=== PATIENT | female | born 1955 | race Hispanic/Latino ===

== ENCOUNTER → 2017-08-26 | Day surgery (SDC) | payer OTHER ==
[2017-08-25 12:25] VITALS: BMI 55.1
--- NOTE | 2017-08-26 14:47 | OP ---
DATE OF PROCEDURE: 08/26/2017 SURGEON: Jimi Petersen M.D. MASTICATOR SURGEON: None. PROCEDURE: Esophagogastroduodenoscopy, diagnostic. INDICATION: Follow up gastric ulcer. Prior Esophagogastroduodenoscopy on 06/23/2017 demonstrated wh at appeared to be an ulcerative submucosal nodule in the posterior wall of the gastric body. Perform ing followup EGD to assess for ulcer healing after 2 months of high dose acid suppression. Prior bio psies of the ulcer demonstrated only reactive gastropathy, but this did appear to be submucosal lesio n. MEDICATIONS: See anesthesia record. FINDINGS: After discussion of the risks, benefits and alternatives of the procedure, informed consen t was obtained and witnessed. Pre-endoscopic cardiopulmonary examination was satisfactory. Timeout was performed before sedation was achieved. Sedation was achieved with anesthesia assistance in the endoscopy unit. A Pentax adult upper endoscope was placed into the oropharynx and passed through the cricopharyngeus under direct visualization. The esophageal mucosa appeared normal throughout with a normal-appearing Z-line. The endoscope was then advanced into the stomach. Forward and retroflexed views of the entire gastric mucosa were obtained. The gastric mucosa has a diffusely atrophic appea matilde at 55 cm from the incisors, along the posterior wall of the gastric body near the incisura, the re is again visualize what appears to be an ulcerated submucosal nodule. This is about [address] at the base. There is some friability to the ulcerated area, but no significant oozing or bleedi ng. Overall, this appears unchanged since her prior exam 2 months ago, despite maximal acid suppress ion. The endoscope was advanced through the pylorus and into the first and second portions of the du odenum, which appeared normal. The upper endoscope was then completely withdrawn and the patient all owed to recover. The patient tolerated the procedure well. There were no immediate post-procedure c omplications. IMPRESSION: 1. Ulcerated submucosal nodule, posterior wall of the gastric body, about 2 cm in diameter, unchange d in appearance from 2 months prior. 2. Diffusely atrophic gastric mucosa. 3. Otherwise, normal esophagogastroduodenoscopy. RECOMMENDATIONS: 1. Continue twice daily proton pump inhibitor. 2. We will send a referral for endoscopic ultrasound examination.
== END ==
LOC: SDC 09:43
PROVIDERS: ATTEND Internal Medicine
PROC: 0DJ08ZZ Inspection of Upper Intestinal Tract, Via Natural or Artificial Opening Endoscopic (ICD-10-PCS; principal; 2017-08-26)
DX: K31.89 Other diseases of stomach and duodenum (principal); I10 Essential (primary) hypertension; I50.9 Heart failure, unspecified; F32.9 Major depressive disorder, single episode, unspecified; F41.9 Anxiety disorder, unspecified; G47.33 Obstructive sleep apnea (adult) (pediatric); Z79.82 Long term (current) use of aspirin; Z79.899 Other long term (current) drug therapy; Z99.89 Dependence on other enabling machines and devices; Z98.890 Other specified postprocedural states; Z87.891 Personal history of nicotine dependence

== ENCOUNTER 2018-02-01 14:28 | Outpatient (CLI) | payer OTHER ==
--- NOTE | 2018-02-02 11:46 | MMO ---
BILATERAL DIGITAL SCREENING MAMMOGRAMS: Date: 02/01/18 This patient's mammogram was interpreted with the assistance of computer-aided detection. Comparison made with exam of 04/17/15. FINDINGS: There are scattered fibroglandular densities and benign calcifications. No suspicious masses or calci fications are identified. IMPRESSION: BIRADS 2: Benign Finding(s) Return to annual mammographic screening. POS: LETITIA
== END 2018-02-01 14:29 | disposition home or self-care (01) ==
LOC: SCSMAMMO 14:28
PROVIDERS: ATTEND Family Medicine
DX: Z12.31 Encounter for screening mammogram for malignant neoplasm of breast (principal)
CPT/HCPCS: 77067

== ENCOUNTER 2018-05-27 14:33 | Emergency (ER) | payer OTHER ==
[2018-05-27] MEDS ORDERED: HYDROcodone/Acetaminophen 5/325 mg Tablet ONE (14:47)
[2018-05-27] MEDS ORDERED: Ketorolac Tromethamine 60 MG/2 ML VIAL ONE (14:47)
== END 2018-05-27 15:10 | disposition home or self-care (01) ==
LOC: ERS 14:33
DX: G89.29 Other chronic pain (principal); M25.551 Pain in right hip; M25.552 Pain in left hip; M54.5 Low back pain; I11.0 Hypertensive heart disease with heart failure; I50.9 Heart failure, unspecified; E78.5 Hyperlipidemia, unspecified; F31.9 Bipolar disorder, unspecified; F41.9 Anxiety disorder, unspecified; Z79.82 Long term (current) use of aspirin; Z79.899 Other long term (current) drug therapy
CPT/HCPCS: 36415; 80053; 80061; 96372; J1885

== ENCOUNTER 2020-04-08 13:56 | Emergency (ER) | payer OTHER ==
[2020-04-09 17:56] LABS: SARS-CoV-2 MS2 Positive; SARS-CoV-2 N Gene Negative; SARS-CoV-2 S Gene Negative; SARS-CoV-2 orf1ab Negative
== END 2020-04-08 14:22 | disposition home or self-care (01) ==
LOC: ERS 13:56
DX: J34.89 Other specified disorders of nose and nasal sinuses (principal); R05 Cough; I11.0 Hypertensive heart disease with heart failure; I50.9 Heart failure, unspecified; E78.5 Hyperlipidemia, unspecified; F41.9 Anxiety disorder, unspecified; F32.9 Major depressive disorder, single episode, unspecified; Z20.828 Contact with and (suspected) exposure to other viral communicable diseases; Z79.82 Long term (current) use of aspirin; Z79.899 Other long term (current) drug therapy
CPT/HCPCS: 87635; 99283; U0003

== ENCOUNTER 2020-08-17 13:32 | Emergency (ER) | payer OTHER ==
--- NOTE | 2020-08-17 14:46 | RAD ---
PORTABLE CHEST 1 VIEW: DATE: 08/17/2020. TIME: 1:36 PM. HISTORY: Shortness of breath, nausea, vomiting, and loss of smell and taste. Cough. COMPARISON: 05/31/2014. FINDINGS/IMPRESSION: The heart is enlarged. There are patchy opacities in the lung muller bilaterally, right greater than left. A calcified granuloma is again noted in the right upper lobe. There is continued elevation o f the right hemidiaphragm. No pneumothoraces or large effusions are seen. The possibility of pneumo lary should be considered. POS: AH
[2020-08-17] MEDS ORDERED: Iopamidol-370 76% 500 ML 1 ML ONE (15:22)
[2020-08-17 15:32] LABS: #Lymphocytes 0.9 thou/uL (1.20-3.40); #Monocytes 0.2 thou/uL (0.11-0.59); #Neutrophils 4.1 thou/uL (1.40-6.50); %Basophils 0.2 % (0.0-1.0); %Eosinophils 0.1 % (0.0-10.0); %Lymphocytes 16.9 % (21.0-51.0); %Monocytes 4.1 % (0.0-10.0); %Neutrophils 78.6 % (42.0-75.0); Hemoglobin 11.4 g/dL (12.0-16.0); Mean Corpuscular HGB CONC 30.2 g/dL (32.0-36.0); Mean Corpuscular Hemoglobin 26.9 pg (27.0-31.0); Mean Corpuscular Volume 89.3 fL (78.0-98.0); Mean Platelet Volume 7.7 fL (7.4-10.4); Platelet Count 159 thou/uL (130-400); RBC Distribution Width 13.7 % (11.5-14.5); Red Blood Cell (RBC) Count 4.21 mill/uL (4.20-5.40); White Blood Cell (WBC) Count 5.2 thou/uL (4.8-10.8)
[2020-08-17 17:34] LABS: ALT (SGPT) 17 U/L (8-55); AST (SGOT) 40 U/L (5-34); Albumin 3.2 g/dL (3.4-4.8); Alkaline Phosphatase 102 U/L (40-110); Anion Gap 12 mmol/L (10-20); BUN (Urea Nitrogen) 11 mg/dL (9.8-20.1); Bilirubin, Total 0.5 mg/dL (0.2-1.2); Calc. Creatinine Clearance 0 mL/min (70-130); Calcium 8.3 mg/dL (7.8-10.44); Carbon Dioxide 32 mmol/L (23-31); Chloride 99 mmol/L (98-107); Estimated GFR-MDRD Greater than 90; Globulin 3.6 g/dL (2.4-3.5); Glucose 111 mg/dL (80-115); Potassium 4.3 mmol/L (3.5-5.1); Protein, Total 6.8 g/dL (6.0-8.3); Sodium 139 mmol/L (136-145)
[2020-08-17] MEDS ORDERED: Acetaminophen 500 MG TAB ONE (19:41)
--- NOTE | 2020-08-17 20:16 | CT ---
CT ANGIOGRAM OF THE CHEST: 08/17/20 HISTORY: Worsening malaise. Severe heart failure. Home oxygen. COMPARISON: 06/13/11, 05/02/10. TECHNIQUE: CT angiogram of the chest is performed in the axial plane. Three dimensional reformatted images are s ubmitted for interpretation. FINDINGS: MEDIASTINUM: No evidence of lymphadenopathy. Stable right paratracheal lymph nodes. HEART: Upper normal heart size. No significant pericardial fluid. There is extensive coronary artery disease . SUBDIAPHRAGMATIC STRUCTURES: No acute abnormality. Surgically absent gallbladder. TRACHEA AND CENTRAL BRONCHI: Patent. PLEURAL SPACES: No significant pleural effusion. PNEUMOTHORAX: None LUNGS: There are scattered ground glass opacities throughout the lung parenchyma. Many of these ground glass opacities have a peripheral distribution. There is more focal consolidation with air bronchograms in the right upper lobe. Given the distribution, COVID-19 pneumonia must be considered. Superimposed ba cterial pneumonia or pulmonary edema in the right upper lobe cannot be excluded. The visualized aorta has a normal caliber. No evidence of aneurysm. Heterogeneous thyroid gland is identified. There is persistent dilatation of the central pulmonary artery, compatible with pulmonary arterial hy pertension. Adequate contrast opacification of the pulmonary arterial system to the level of the loba r arteries. No filing defect to suggest thromboembolism. Limited evaluation of the segmental and subs egmental artery due to timing of contrast bolus. IMPRESSION: 1. No evidence of pulmonary artery embolism to the level of the lobar arteries. 2. Prominent pulmonary artery, worrisome for pulmonary arterial hypertension. 3. Focal consolidation of the right upper lobe may represent edema or bacterial pneumonia. 4. There are peripheral ground glass opacities, suspicious for COVID-19 pneumonia. POS: PPP
[2020-08-17 22:18] LABS: SARS-CoV-2 MS2 Positive; SARS-CoV-2 N Gene Positive; SARS-CoV-2 S Gene Positive; SARS-CoV-2 by NAA DETECTED (NotDetected); SARS-CoV-2 orf1ab Positive
--- NOTE | 2020-08-25 15:55 | EKG ---
Test Reason : Blood Pressure : / mmHG Vent. Rate : 070 BPM Atrial Rate : 070 BPM P-R Int : 158 ms QRS Dur : 066 ms QT Int : 414 ms P-R-T Axes : -18 016 047 degrees QTc Int : 447 ms Normal sinus rhythm Low voltage QRS Borderline ECG Confirmed by CHUY CRUZ ([id number]), supervising editor trailer TERRI AZAR ([id number]) on 08/25/2020 3:55:03 PM Referred By: Confirmed By:CHUY CRUZ
== END 2020-08-17 19:38 | disposition home or self-care (01) ==
LOC: ERS 13:32
DX: U07.1 COVID-19 (principal); J12.89 Other viral pneumonia; I11.0 Hypertensive heart disease with heart failure; I50.9 Heart failure, unspecified; E78.5 Hyperlipidemia, unspecified; F41.9 Anxiety disorder, unspecified; F32.9 Major depressive disorder, single episode, unspecified; Z79.899 Other long term (current) drug therapy; Z79.82 Long term (current) use of aspirin
CPT/HCPCS: 36415; 51701; 71045; 71275; 80053; 83735; 83880; 84484; 85025; 85379; 87040; 87086; 87635; 87804; 93005; Q9967; U0003

== ENCOUNTER 2022-01-01 18:31 | Inpatient (IN) | payer OTHER, MEDICARE ==
[2022-01-01 19:08] LABS: #Eosinphils 0.1 thou/uL (0.0-0.7); #Lymphocytes 1.8 thou/uL (1.20-3.40); #Monocytes 0.4 thou/uL (0.11-0.59); #Neutrophils 5.8 thou/uL (1.40-6.50); %Basophils 0.2 % (0.0-1.0); %Eosinophils 0.7 % (0.0-10.0); %Lymphocytes 22.1 % (21.0-51.0); %Monocytes 5.1 % (0.0-10.0); Hemoglobin 10.9 g/dL (12.0-16.0); Mean Corpuscular Hemoglobin 27.9 pg (27.0-31.0); Mean Corpuscular Volume 92.9 fL (78.0-98.0); Mean Platelet Volume 7.6 fL (7.4-10.4); Platelet Count 226 thou/uL (130-400); RBC Distribution Width 14.6 % (11.5-14.5); White Blood Cell (WBC) Count 8.1 thou/uL (4.8-10.8)
[2022-01-01] MEDS ORDERED: Furosemide 40 MG/4 ML VIAL ONE (19:19)
[2022-01-01 19:20] LABS: Hypochromia SLIGHT = 6-15 cells (100X) (0-5/hpf); MDiff Complete? YES; Platelet Morphology Comment Appears Adequate; Polychromasia SLIGHT = 2-3 cells (100X) (0-2/hpf)
[2022-01-01 19:24] LABS: Actual Bicarbonate (HCO3v) 30 mEq/L (22-28); Analyzer IN Cardio ER; Base Excess 2.5 mEq/L (-2.0 to +3.0); Calcium, Ionized (venous) 1.11 mmol/L (1.16-1.32); Chloride (VBG) 104 mmol/L (98-106); Hemoglobin (Hb) 11.5 g/dL (11.7-16.1); Potassium (VBG) 4.34 mmol/L (3.70-5.30); Sodium 139.7 mmol/L (133-146); pH (venous) 7.32 (7.32-7.43)
[2022-01-01 19:30] LABS: ALT (SGPT) 11 U/L (8-55); AST (SGOT) 18 U/L (5-34); Albumin 3.5 g/dL (3.4-4.8); Alkaline Phosphatase 139 U/L (40-110); Anion Gap 11 mmol/L (10-20); BUN (Urea Nitrogen) 31 mg/dL (9.8-20.1); Bilirubin, Total 0.4 mg/dL (0.2-1.2); Calc. Creatinine Clearance 0 mL/min (70-130); Calcium 8.8 mg/dL (7.8-10.44); Carbon Dioxide 33 mmol/L (23-31); Chloride 104 mmol/L (98-107); Globulin 3.2 g/dL (2.4-3.5); Glucose 137 mg/dL (80-115); Potassium 4.3 mmol/L (3.5-5.1); Protein, Total 6.7 g/dL (5.8-8.1); Sodium 144 mmol/L (136-145)
[2022-01-01] MEDS ORDERED: Acetaminophen 325 MG TAB PO SCH (21:00)
[2022-01-01] MEDS ORDERED: Ondansetron ODT 4 MG TAB PO PRN (22:43)
[2022-01-02] MEDS: Acetaminophen 325 MG TAB PO PRN ×2 (03:35→08:25)
[2022-01-02 03:45] VITALS: BMI 52.7
[2022-01-02 05:01] LABS: Hemoglobin 9.9 g/dL (12.0-16.0); Mean Corpuscular HGB CONC 29.3 g/dL (32.0-36.0); Mean Corpuscular Hemoglobin 26.9 pg (27.0-31.0); Mean Platelet Volume 7.6 fL (7.4-10.4); Platelet Count 214 thou/uL (130-400); RBC Distribution Width 14.5 % (11.5-14.5); Red Blood Cell (RBC) Count 3.66 mill/uL (4.20-5.40); White Blood Cell (WBC) Count 7.3 thou/uL (4.8-10.8)
[2022-01-02 05:03] LABS: Anion Gap 11 mmol/L (10-20); BUN (Urea Nitrogen) 24 mg/dL (9.8-20.1); Calc. Creatinine Clearance 167 mL/min (70-130); Calcium 9.1 mg/dL (7.8-10.44); Carbon Dioxide 37 mmol/L (23-31); Chloride 101 mmol/L (98-107); Glucose 103 mg/dL (80-115); Potassium 3.8 mmol/L (3.5-5.1); Sodium 145 mmol/L (136-145)
[2022-01-02 05:16] LABS: #Basophils 0.1 thou/uL (0.0-0.2); #Lymphocytes 1.7 thou/uL (1.20-3.40); #Monocytes 0.5 thou/uL (0.11-0.59); #Neutrophils 4.9 thou/uL (1.40-6.50); %Basophils 1.4 % (0.0-1.0); %Eosinophils 0.6 % (0.0-10.0); %Monocytes 6.2 % (0.0-10.0); %Neutrophils 67.8 % (42.0-75.0); Hypochromia SLIGHT = 6-15 cells (100X) (0-5/hpf); MDiff Complete? YES; Stomatocytes SLIGHT = 2-5 cells (100X) (0-1/hpf)
[2022-01-02] MEDS: Famotidine 20 MG TAB PO SCH ×2 (08:25→20:46)
[2022-01-02] MEDS: Furosemide 40 MG TAB PO SCH (08:25)
[2022-01-02] MEDS: Enoxaparin Sodium 40 MG/0.4 ML SYRINGE SC SCH (08:26)
[2022-01-02] MEDS: Metoprolol Tartrate 25 MG TAB PO SCH ×2 (08:26→20:45)
[2022-01-02] MEDS: Aspirin 81 mg Enteric Coated Tablet PO SCH (08:26)
[2022-01-02] MEDS ORDERED: Furosemide 40 MG/4 ML VIAL SLOW IVP SCH (09:00)
[2022-01-02] MEDS ORDERED: AcetaZOLAMIDE 250 MG TAB PO SCH (09:00)
[2022-01-02 11:58] LABS: SARS-CoV-2 PCR by NAA Not Detected (NotDetected)
[2022-01-02] MEDS ORDERED: Furosemide 20 MG/2 ML VIAL SLOW IVP SCH (16:45)
[2022-01-02] MEDS ORDERED: Atorvastatin Calcium 40 MG TAB PO SCH (21:00)
[2022-01-03 04:31] LABS: #Basophils 0.1 thou/uL (0.0-0.2); #Eosinphils 0.1 thou/uL (0.0-0.7); #Lymphocytes 2.2 thou/uL (1.20-3.40); #Monocytes 0.4 thou/uL (0.11-0.59); #Neutrophils 3.4 thou/uL (1.40-6.50); %Basophils 1.2 % (0.0-1.0); %Eosinophils 0.9 % (0.0-10.0); %Lymphocytes 35.8 % (21.0-51.0); %Monocytes 6.4 % (0.0-10.0); %Neutrophils 55.6 % (42.0-75.0); Hemoglobin 9.7 g/dL (12.0-16.0); Mean Corpuscular HGB CONC 29.1 g/dL (32.0-36.0); Mean Corpuscular Hemoglobin 26.8 pg (27.0-31.0); Mean Corpuscular Volume 92.2 fL (78.0-98.0); Mean Platelet Volume 7.5 fL (7.4-10.4); Platelet Count 213 thou/uL (130-400); RBC Distribution Width 14.6 % (11.5-14.5); Red Blood Cell (RBC) Count 3.63 mill/uL (4.20-5.40); White Blood Cell (WBC) Count 6.1 thou/uL (4.8-10.8)
[2022-01-03 04:50] LABS: BUN (Urea Nitrogen) 24 mg/dL (9.8-20.1); Calc. Creatinine Clearance 167 mL/min (70-130); Calcium 9.1 mg/dL (7.8-10.44); Glucose 94 mg/dL (80-115)
[2022-01-03 05:00] LABS: Anion Gap 13 mmol/L (10-20); Carbon Dioxide 37 mmol/L (23-31); Chloride 97 mmol/L (98-107); Potassium 3.7 mmol/L (3.5-5.1); Sodium 143 mmol/L (136-145)
[2022-01-03] MEDS: Furosemide 40 MG TAB PO SCH (06:31)
[2022-01-03] MEDS: Metoprolol Tartrate 25 MG TAB PO SCH (08:34)
[2022-01-03] MEDS: Famotidine 20 MG TAB PO SCH (08:34)
[2022-01-03] MEDS: Enoxaparin Sodium 40 MG/0.4 ML SYRINGE SC SCH (08:34)
[2022-01-03] MEDS: Aspirin 81 mg Enteric Coated Tablet PO SCH (08:35)
[2022-01-03] MEDS ORDERED: AcetaZOLAMIDE 250 MG TAB PO SCH (09:00)
[2022-01-03 11:40] VITALS: BP 121/58; TEMP 98.5
== END 2022-01-03 15:00 | disposition home or self-care (01) | DRG 291 ==
LOC: ERS 18:31 → ERHOLD 20:14 → 2SW 21:59 → OBSVTOIN 01-02 09:48
PROVIDERS: ADMIT Family Medicine; ATTEND Family Medicine
PROC: 5A09357 Assistance with Respiratory Ventilation, Less than 24 Consecutive Hours, Continuous Positive Airway Pressure (ICD-10-PCS; principal; 2022-01-03)
DX: I11.0 Hypertensive heart disease with heart failure (principal); I50.33 Acute on chronic diastolic (congestive) heart failure; J96.01 Acute respiratory failure with hypoxia; Z68.43 Body mass index [BMI] 50.0-59.9, adult; G47.33 Obstructive sleep apnea (adult) (pediatric); E78.5 Hyperlipidemia, unspecified; I25.10 Atherosclerotic heart disease of native coronary artery without angina pectoris; K21.9 Gastro-esophageal reflux disease without esophagitis; I27.20 Pulmonary hypertension, unspecified; J44.9 Chronic obstructive pulmonary disease, unspecified; E66.01 Morbid (severe) obesity due to excess calories; W19.XXXA Unspecified fall, initial encounter; D64.9 Anemia, unspecified; L21.9 Seborrheic dermatitis, unspecified; Z20.822 Contact with and (suspected) exposure to COVID-19; Z79.899 Other long term (current) drug therapy; Z95.1 Presence of aortocoronary bypass graft; Z79.82 Long term (current) use of aspirin; I25.2 Old myocardial infarction; Z87.891 Personal history of nicotine dependence; Y92.008 Other place in unspecified non-institutional (private) residence as the place of occurrence of the external cause
CPT/HCPCS: 36415; 71045; 71046; 80048; 80053; 82805; 83880; 84145; 84484; 85025; 93005; 96372; 96374; 96376; 97139; G0378; J1650; J1940; U0003; U0005

== ENCOUNTER 2022-04-08 19:00 | Outpatient (CLI) | payer OTHER | END 2022-04-08 19:01 | disposition home or self-care (01) | LOC: SLEEPLAB 19:00 | PROVIDERS: ATTEND Internal Medicine Critical Care Medicine | DX: G47.33 Obstructive sleep apnea (adult) (pediatric) (principal); R06.83 Snoring; R09.02 Hypoxemia; G47.10 Hypersomnia, unspecified; E66.9 Obesity, unspecified; Z68.43 Body mass index [BMI] 50.0-59.9, adult | CPT/HCPCS: 95811 ==

== ENCOUNTER 2024-07-30 22:40 | Inpatient (IN) | payer OTHER, MEDICAID ==
[2024-07-30] MEDS ORDERED: Acetaminophen 500 MG TAB ONE (23:06)
[2024-07-30] MEDS ORDERED: Sodium Chloride 0.9% 100 ML ONE (23:06)
[2024-07-30] MEDS ORDERED: Cefepime 2 GM VIAL ONE (23:06)
[2024-07-30 23:13] LABS: #Basophils Less than 0.03 10x3/uL (0.0-0.2); #Eosinophils Less than 0.03 10x3/uL (0.0-0.7); %Basophils 0.1 % (0.0-1.0); %Eosinophils 0.1 % (0.0-10.0); %Lymphocytes 8.8 % (21.0-51.0); %Monocytes 7.1 % (0.0-10.0); %Neutrophils 83.4 % (42.0-75.0); Hematocrit 33.2 % (36.0-47.0); Hemoglobin 9.5 g/dL (12.0-16.0); Mean Corpuscular HGB CONC 28.6 g/dL (32.0-36.0); Mean Corpuscular Hemoglobin 23.2 pg (27.0-31.0); Mean Corpuscular Volume 81.2 fL (78.0-98.0); Mean Platelet Volume 9.4 fL (7.4-10.4); Platelet Count 268 10x3/uL (130-400); RBC Distribution Width 16.9 % (11.5-14.5); Red Blood Cell (RBC) Count 4.09 mill/uL (4.20-5.40)
[2024-07-30 23:27] LABS: ALT (SGPT) 21 U/L (8-55); AST (SGOT) 39 U/L (5-34); Albumin 2.5 g/dL (3.4-4.8); Alkaline Phosphatase 133 U/L (40-110); Anion Gap 12 mmol/L (10-20); BUN (Urea Nitrogen) 17 mg/dL (9.8-20.1); Bilirubin, Total 0.4 mg/dL (0.2-1.2); Calc. Creatinine Clearance 0 mL/min (70-130); Carbon Dioxide 24 mmol/L (23-31); Chloride 105 mmol/L (98-107); Estimated GFR 75; Globulin 5.1 g/dL (2.4-3.5); Glucose 155 mg/dL (80-115); Lipase 14 U/L (8-78); Potassium 3.8 mmol/L (3.5-5.1); Protein, Total 7.6 g/dL (5.8-8.1); Sodium 137 mmol/L (136-145)
[2024-07-30 23:30] LABS: Bacteria/HPF None Seen HPF (None Seen); Bilirubin Negative (Negative); Blood, Urine 3+ (Negative); CAUTI Indications for Culture Fever or rigors; Clarity Clear (Clear); Glucose, Urine (Dipstick) 30 mg/dL (Negative); Ketone, Urine Negative (Negative); Leukocyte Negative Leu/uL (Negative); Nitrite Negative (Negative); Protein, Urine (Dipstick) 50 mg/dL (Neg-Trace); RBC/HPF None Seen HPF (0-3); Specific Gravity, Urine 1.026 (1.002-1.036); Squamous Epithelial 0-3 HPF (0-3); WBC/HPF 0-3 HPF (0-3)
[2024-07-30 23:34] LABS: Urine Culture Reflex No No
[2024-07-30 23:36] LABS: Troponin I Less than 0.010 ng/mL (< 0.028)
[2024-07-31] MEDS ORDERED: Vancomycin 1 GM/200 ML (FROZEN) BAG ONE (01:07)
[2024-07-31 02:21] LABS: Lactic Acid 0.85 mmol/L (0.5-2.2)
[2024-07-31 04:42] VITALS: BMI 49.1
[2024-07-31] MEDS ORDERED: Acetaminophen 650 MG Suppository PR PRN (04:48)
[2024-07-31] MEDS ORDERED: Ondansetron PF 4 MG/2 ML Vial IVP PRN (04:48)
[2024-07-31] MEDS ORDERED: Ondansetron ODT 4 MG TAB PO PRN (04:48)
[2024-07-31 05:54] LABS: Legionella Urinary Ag Negative (Negative); Strep pneumo Urine Ag NEGATIVE (NEGATIVE)
[2024-07-31] MEDS: Acetaminophen 325 MG TAB PO SCH (06:23)
[2024-07-31] MEDS: Vancomycin (BATCH) 1.5 GM in Premix 1 BAG IVPB SCH (06:25)
[2024-07-31 06:58] LABS: Influenza A by NAA Not Detected (NotDetected); Influenza B by NAA Not Detected (NotDetected); SARS-CoV-2 NAA Rapid Test Not Detected (NotDetected)
[2024-07-31] MEDS: Famotidine/PF 20 mg/2ml Vial SLOW IVP SCH (08:37)
[2024-07-31] MEDS: Famotidine 20 MG TAB PO SCH (08:40)
[2024-07-31] MEDS: Metoprolol Tartrate 25 MG TAB PO SCH (08:40)
[2024-07-31] MEDS: Aspirin 81 mg Enteric Coated Tablet PO SCH (08:40)
[2024-07-31] MEDS ORDERED: Iopamidol 370 76% 100 ML VIAL ONE (08:59)
[2024-07-31] MEDS ORDERED: Vancomycin (BATCH) 1.5 GM in Premix 1 BAG IVPB SCH (09:00)
[2024-07-31] MEDS: Cefepime 2 GM in Sodium Chloride 0.9% 100 ML IVPB SCH (11:03)
[2024-07-31] MEDS: Ipratropium/Albuterol 3 ML NEB NEB SCH (19:40)
[2024-07-31] MEDS: Ketorolac Tromethamine 30 MG (1 mL) VIAL IVP SCH (21:27)
[2024-07-31] MEDS: Atorvastatin Calcium 40 MG TAB PO SCH (21:27)
[2024-07-31] MEDS: Transdermal Patch Removal TOP SCH (21:29)
[2024-08-01] MEDS ORDERED: Lidocaine 1% PF 5 ML VIAL ONE ×2 (08:19→14:27)
[2024-08-01] MEDS ORDERED: Sodium Bicarbonate 2.5 MEQ/5 ML SDV ONE ×2 (08:19→14:27)
[2024-08-01 08:20] LABS: Vancomycin, Random 16.8 ug/mL (See Comment)
[2024-08-01 08:21] LABS: Anion Gap 11 mmol/L (10-20); BUN (Urea Nitrogen) 18 mg/dL (9.8-20.1); Calc. Creatinine Clearance 128 mL/min (70-130); Calcium 8.9 mg/dL (7.8-10.44); Carbon Dioxide 28 mmol/L (23-31); Chloride 101 mmol/L (98-107); Estimated GFR 93; Glucose 92 mg/dL (80-115); Potassium 3.8 mmol/L (3.5-5.1); Sodium 136 mmol/L (136-145)
[2024-08-01 08:24] LABS: #Basophils Less than 0.03 10x3/uL (0.0-0.2); %Basophils 0.1 % (0.0-1.0); %Eosinophils 0.5 % (0.0-10.0); %Lymphocytes 14.3 % (21.0-51.0); %Monocytes 6.4 % (0.0-10.0); Hematocrit 29.6 % (36.0-47.0); Hemoglobin 8.5 g/dL (12.0-16.0); Mean Corpuscular HGB CONC 28.7 g/dL (32.0-36.0); Mean Corpuscular Hemoglobin 22.8 pg (27.0-31.0); Mean Corpuscular Volume 79.6 fL (78.0-98.0); Platelet Count 243 10x3/uL (130-400); RBC Distribution Width 16.9 % (11.5-14.5); Red Blood Cell (RBC) Count 3.72 mill/uL (4.20-5.40)
[2024-08-01] MEDS: cefTRIAXone\\ROCEPHIN 2 GM in Sodium Chloride 0.9% 100 ML IVPB SCH (08:42)
[2024-08-01] MEDS: Lidocaine 4% Patch TD SCH (08:43)
[2024-08-01 08:56] LABS: Platelet Adequacy Comment Platelets Normal; Polychromasia SLIGHT = 2-3 cells HPF (0-2)
[2024-08-01] MEDS: cefTRIAXone Sodium 2,000 MG in Syringe 0 ML IVPB SCH (12:19)
[2024-08-01] MEDS: Cyclobenzaprine 10 MG TAB PO PRN (15:47)
[2024-08-01 16:50] LABS: Synovial Fluid, Uric Acid 4.2 mg/dL (Not Available)
[2024-08-01 17:32] LABS: RBC Count-Automated (BF) 17594 /cu.mm; WBC/Nucleated-Auto (BF) 45097 /cu.mm
[2024-08-01 18:56] LABS: BF Color Yellow; Body Fluid Source Synovial Fluid; Clarity Cloudy/Turbid (Clear); Tube # EDTA
[2024-08-01 19:03] LABS: BF Segmented Neutrophils 80 %; Cell Count Non Hematic 9 %; Lymphocytes 11 %
[2024-08-03 08:24] LABS: #Basophils Less than 0.03 10x3/uL (0.0-0.2); %Basophils 0.1 % (0.0-1.0); %Eosinophils 1.2 % (0.0-10.0); %Lymphocytes 19.2 % (21.0-51.0); %Monocytes 8.6 % (0.0-10.0); %Neutrophils 70.2 % (42.0-75.0); Hematocrit 29.4 % (36.0-47.0); Hemoglobin 8.3 g/dL (12.0-16.0); Mean Corpuscular HGB CONC 28.2 g/dL (32.0-36.0); Mean Corpuscular Hemoglobin 22.9 pg (27.0-31.0); Mean Corpuscular Volume 81.2 fL (78.0-98.0); Mean Platelet Volume 9.1 fL (7.4-10.4); Platelet Count 273 10x3/uL (130-400); RBC Distribution Width 16.5 % (11.5-14.5); Red Blood Cell (RBC) Count 3.62 mill/uL (4.20-5.40)
[2024-08-03 08:27] LABS: Anion Gap 13 mmol/L (10-20); BUN (Urea Nitrogen) 15 mg/dL (9.8-20.1); Calc. Creatinine Clearance 174 mL/min (70-130); Calcium 8.9 mg/dL (7.8-10.44); Carbon Dioxide 33 mmol/L (23-31); Chloride 98 mmol/L (98-107); Estimated GFR 101; Glucose 110 mg/dL (80-115); Sodium 140 mmol/L (136-145)
[2024-08-03] MEDS ORDERED: Ipratropium/Albuterol 3 ML NEB ONE (13:27)
[2024-08-03] MEDS ORDERED: PROPOFOL 20 ML ONE (14:02)
[2024-08-03] MEDS ORDERED: fentaNYL PF 100 MCG/2 ML SYRINGE ONE (14:05)
[2024-08-03] MEDS ORDERED: Ondansetron PF 4 MG/2 ML Vial ONE (14:05)
[2024-08-03] MEDS ORDERED: SUCCINYLCHOLINE/SOD CL,ISO/PF 200 MG/10 ML SYRINGE FS ONE (14:05)
[2024-08-03] MEDS ORDERED: Lidocaine 2% PF 5 ML VIAL ONE (14:05)
[2024-08-03] MEDS ORDERED: Dexamethasone 20 MG/5 ML VIAL ONE (14:36)
[2024-08-03] MEDS ORDERED: PHENYLEPHRINE-NS 100 MCG/ML 10 ML SYRINGE ONE (14:36)
[2024-08-03] MEDS: FLU (Fluad Triv) TS24-25 (65UP)/MF59C/PF 45 MCG/0.5 ML Syringe IM ONE (17:06)
[2024-08-03] MEDS: Morphine 2 MG/ML VIAL SLOW IVP PRN (17:17)
[2024-08-03] MEDS: Senokot S 8.6-50 MG TAB PO SCH (20:32)
[2024-08-04 04:34] LABS: #Basophils Less than 0.03 10x3/uL (0.0-0.2); #Eosinophils Less than 0.03 10x3/uL (0.0-0.7); %Basophils 0.1 % (0.0-1.0); %Lymphocytes 10.2 % (21.0-51.0); %Monocytes 2.4 % (0.0-10.0); %Neutrophils 86.9 % (42.0-75.0); Hematocrit 29.9 % (36.0-47.0); Hemoglobin 8.5 g/dL (12.0-16.0); Mean Corpuscular HGB CONC 28.4 g/dL (32.0-36.0); Mean Corpuscular Hemoglobin 23.1 pg (27.0-31.0); Mean Corpuscular Volume 81.3 fL (78.0-98.0); Platelet Count 282 10x3/uL (130-400); RBC Distribution Width 16.2 % (11.5-14.5); Red Blood Cell (RBC) Count 3.68 mill/uL (4.20-5.40)
[2024-08-04 04:44] LABS: Anion Gap 12 mmol/L (10-20); BUN (Urea Nitrogen) 21 mg/dL (9.8-20.1); Calc. Creatinine Clearance 146 mL/min (70-130); Carbon Dioxide 30 mmol/L (23-31); Chloride 101 mmol/L (98-107); Estimated GFR 97; Glucose 141 mg/dL (80-115); Potassium 4.9 mmol/L (3.5-5.1); Sodium 138 mmol/L (136-145)
[2024-08-05 05:59] LABS: #Basophils Less than 0.03 10x3/uL (0.0-0.2); #Eosinophils Less than 0.03 10x3/uL (0.0-0.7); %Basophils 0.1 % (0.0-1.0); %Eosinophils 0.1 % (0.0-10.0); %Lymphocytes 15.8 % (21.0-51.0); %Monocytes 6.9 % (0.0-10.0); %Neutrophils 76.4 % (42.0-75.0); Hemoglobin 8.1 g/dL (12.0-16.0); Mean Corpuscular HGB CONC 27.9 g/dL (32.0-36.0); Mean Corpuscular Hemoglobin 22.7 pg (27.0-31.0); Mean Corpuscular Volume 81.2 fL (78.0-98.0); Mean Platelet Volume 9.2 fL (7.4-10.4); Platelet Count 350 10x3/uL (130-400); RBC Distribution Width 16.1 % (11.5-14.5); Red Blood Cell (RBC) Count 3.57 mill/uL (4.20-5.40)
[2024-08-05 06:16] LABS: Anion Gap 12 mmol/L (10-20); BUN (Urea Nitrogen) 27 mg/dL (9.8-20.1); Calc. Creatinine Clearance 158 mL/min (70-130); Calcium 8.6 mg/dL (7.8-10.44); Carbon Dioxide 34 mmol/L (23-31); Chloride 100 mmol/L (98-107); Estimated GFR 99; Glucose 118 mg/dL (80-115); Potassium 4.7 mmol/L (3.5-5.1); Sodium 141 mmol/L (136-145)
[2024-08-05 06:32] LABS: Hypochromia SLIGHT = 6-15 cells HPF (0-5); Microcytosis SLIGHT = 6-15 cells HPF (0-5); Platelet Adequacy Comment Platelets Normal
[2024-08-05] MEDS ORDERED: Sodium Bicarbonate 0.5 MEQ/ML SDV 10 ML ONE (13:06)
[2024-08-05] MEDS ORDERED: Lidocaine 1% PF 5 ML VIAL ONE (13:06)
[2024-08-05] MEDS: ALPRAZolam 0.5 MG TAB PO SCH (14:42)
[2024-08-06 06:04] LABS: Anion Gap 16 mmol/L (10-20); BUN (Urea Nitrogen) 27 mg/dL (9.8-20.1); Calc. Creatinine Clearance 170 mL/min (70-130); Calcium 8.6 mg/dL (7.8-10.44); Carbon Dioxide 33 mmol/L (23-31); Chloride 97 mmol/L (98-107); Estimated GFR 99; Glucose 100 mg/dL (80-115); Potassium 4.6 mmol/L (3.5-5.1); Sodium 141 mmol/L (136-145)
[2024-08-06 06:07] LABS: #Basophils Less than 0.03 10x3/uL (0.0-0.2); %Basophils 0.2 % (0.0-1.0); %Eosinophils 1.1 % (0.0-10.0); %Lymphocytes 22.2 % (21.0-51.0); %Monocytes 10.1 % (0.0-10.0); Hematocrit 28.6 % (36.0-47.0); Hemoglobin 8.1 g/dL (12.0-16.0); Mean Corpuscular HGB CONC 28.3 g/dL (32.0-36.0); Mean Corpuscular Hemoglobin 22.6 pg (27.0-31.0); Mean Corpuscular Volume 79.7 fL (78.0-98.0); Mean Platelet Volume 9.1 fL (7.4-10.4); Platelet Count 330 10x3/uL (130-400); RBC Distribution Width 16.1 % (11.5-14.5); Red Blood Cell (RBC) Count 3.59 mill/uL (4.20-5.40)
[2024-08-06] MEDS: Polyethylene Glycol 3350 17 GM Packet PO PRN (09:05)
[2024-08-06 16:05] VITALS: BMI 51.6
[2024-08-06] MEDS: Famotidine 20 MG TAB PO SCH (21:34)
[2024-08-06] MEDS: Furosemide 20 MG TAB PO SCH (21:34)
[2024-08-06] MEDS: HYDROcodone/Acetaminophen 5/325 mg Tablet PO PRN (21:39)
[2024-08-07 06:50] LABS: #Basophils Less than 0.03 10x3/uL (0.0-0.2); %Basophils 0.2 % (0.0-1.0); %Eosinophils 1.3 % (0.0-10.0); %Lymphocytes 20.4 % (21.0-51.0); %Monocytes 7.9 % (0.0-10.0); %Neutrophils 69.8 % (42.0-75.0); Hematocrit 29.8 % (36.0-47.0); Hemoglobin 8.8 g/dL (12.0-16.0); Mean Corpuscular HGB CONC 29.5 g/dL (32.0-36.0); Mean Corpuscular Hemoglobin 23.4 pg (27.0-31.0); Mean Corpuscular Volume 79.3 fL (78.0-98.0); Mean Platelet Volume 8.9 fL (7.4-10.4); Platelet Count 347 10x3/uL (130-400); Red Blood Cell (RBC) Count 3.76 mill/uL (4.20-5.40)
[2024-08-07 07:10] LABS: Anion Gap 12 mmol/L (10-20); BUN (Urea Nitrogen) 19 mg/dL (9.8-20.1); Calc. Creatinine Clearance 167 mL/min (70-130); Calcium 8.7 mg/dL (7.8-10.44); Carbon Dioxide 38 mmol/L (23-31); Chloride 91 mmol/L (98-107); Estimated GFR 99; Glucose 100 mg/dL (80-115); Magnesium 2.1 mg/dL (1.6-2.6); Potassium 4.5 mmol/L (3.5-5.1); Sodium 136 mmol/L (136-145)
[2024-08-07] MEDS: Enoxaparin 40 MG (0.4 mL) SYRINGE SC SCH (08:01)
[2024-08-07] MEDS: AcetaZOLAMIDE 250 MG TAB PO SCH (08:01)
[2024-08-07] MEDS: Lidocaine 4% Patch TD SCH (11:38)
[2024-08-07] MEDS: Transdermal Patch Removal TOP SCH (22:05)
[2024-08-08 07:18] LABS: Anion Gap 11 mmol/L (10-20); BUN (Urea Nitrogen) 20 mg/dL (9.8-20.1); Calc. Creatinine Clearance 163 mL/min (70-130); Carbon Dioxide 35 mmol/L (23-31); Chloride 93 mmol/L (98-107); Estimated GFR 99; Glucose 110 mg/dL (80-115); Magnesium 2.1 mg/dL (1.6-2.6); Potassium 4.3 mmol/L (3.5-5.1); Sodium 135 mmol/L (136-145)
[2024-08-08 07:56] LABS: #Basophils Less than 0.03 10x3/uL (0.0-0.2); %Basophils 0.2 % (0.0-1.0); %Eosinophils 1.4 % (0.0-10.0); %Lymphocytes 18.8 % (21.0-51.0); %Monocytes 6.6 % (0.0-10.0); %Neutrophils 72.5 % (42.0-75.0); Hematocrit 30.3 % (36.0-47.0); Hemoglobin 8.6 g/dL (12.0-16.0); Mean Corpuscular HGB CONC 28.4 g/dL (32.0-36.0); Mean Corpuscular Hemoglobin 22.5 pg (27.0-31.0); Mean Corpuscular Volume 79.3 fL (78.0-98.0); Mean Platelet Volume 9.1 fL (7.4-10.4); Platelet Count 390 10x3/uL (130-400); RBC Distribution Width 16.2 % (11.5-14.5); Red Blood Cell (RBC) Count 3.82 mill/uL (4.20-5.40)
[2024-08-08] MEDS: Lidocaine 4% Patch TD SCH (08:36)
[2024-08-09 05:41] LABS: #Basophils Less than 0.03 10x3/uL (0.0-0.2); %Basophils 0.1 % (0.0-1.0); %Eosinophils 1.8 % (0.0-10.0); %Monocytes 9.7 % (0.0-10.0); %Neutrophils 68.1 % (42.0-75.0); Hematocrit 33.5 % (36.0-47.0); Hemoglobin 9.5 g/dL (12.0-16.0); Mean Corpuscular HGB CONC 28.4 g/dL (32.0-36.0); Mean Corpuscular Hemoglobin 22.6 pg (27.0-31.0); Mean Corpuscular Volume 79.8 fL (78.0-98.0); Mean Platelet Volume 9.2 fL (7.4-10.4); Platelet Count 360 10x3/uL (130-400); RBC Distribution Width 16.5 % (11.5-14.5)
[2024-08-09 06:06] LABS: Anion Gap 13 mmol/L (10-20); BUN (Urea Nitrogen) 18 mg/dL (9.8-20.1); Calc. Creatinine Clearance 163 mL/min (70-130); Calcium 9.1 mg/dL (7.8-10.44); Carbon Dioxide 29 mmol/L (23-31); Chloride 96 mmol/L (98-107); Estimated GFR 99; Glucose 106 mg/dL (80-115); Magnesium 2.3 mg/dL (1.6-2.6); Potassium 4.1 mmol/L (3.5-5.1); Sodium 134 mmol/L (136-145)
[2024-08-09 08:14] VITALS: TEMP 98.8
[2024-08-09 16:16] VITALS: BP 108/67
== END 2024-08-09 17:59 | DRG 854 ==
LOC: ERS 22:40 → T4-B 07-31 04:01 → CCU 08-03 16:54 → T4-B 08-05 00:04
PROVIDERS: ADMIT Student in an Organized Health Care Education/Training Program; ATTEND Family Medicine
PROC: 0R9J3ZZ Drainage of Right Shoulder Joint, Percutaneous Approach (ICD-10-PCS; principal; 2024-08-01)
PROC: 0JBD0ZZ Excision of Right Upper Arm Subcutaneous Tissue and Fascia, Open Approach (ICD-10-PCS; 2024-08-03)
PROC: 02HV33Z Insertion of Infusion Device into Superior Vena Cava, Percutaneous Approach (ICD-10-PCS; 2024-08-05)
PROC: B5181ZA Fluoroscopy of Superior Vena Cava using Low Osmolar Contrast, Guidance (ICD-10-PCS; 2024-08-05)
DX: A40.9 Streptococcal sepsis, unspecified (principal); E66.2 Morbid (severe) obesity with alveolar hypoventilation; I50.32 Chronic diastolic (congestive) heart failure; J96.11 Chronic respiratory failure with hypoxia; M00.9 Pyogenic arthritis, unspecified; Z68.43 Body mass index [BMI] 50.0-59.9, adult; J44.9 Chronic obstructive pulmonary disease, unspecified; E78.5 Hyperlipidemia, unspecified; I25.10 Atherosclerotic heart disease of native coronary artery without angina pectoris; I71.43 Infrarenal abdominal aortic aneurysm, without rupture; Z95.1 Presence of aortocoronary bypass graft; Z83.3 Family history of diabetes mellitus; Z82.49 Family history of ischemic heart disease and other diseases of the circulatory system; Z79.82 Long term (current) use of aspirin; Z79.899 Other long term (current) drug therapy; D50.9 Iron deficiency anemia, unspecified; I27.20 Pulmonary hypertension, unspecified
CPT/HCPCS: 20611; 36415; 36573; 70450; 71045; 71250; 72146; 72148; 74177; 76942; 76999; 80048; 80053; 80202; 81001; 82728; 82945; 83605; 83690; 83735; 83880; 84157; 84484; 84560; 85025; 85060; 87040; 87070; 87077; 87081; 87086; 87149; 87186; 87205; 87428; 87449; 87899; 89051; 89060; 93005; 93306; 94640; 94660; 94760; 96374; 96375; C1751; J0692; J0696; J1100; J1650; J1885; J2272; J2405; J2704; J3370; J3370-JW; J3490; J7620; Q9967